=== PATIENT | female | born 1965 | race Caucasian/White ===

== ENCOUNTER → 2022-04-18 13:35 | Outpatient (BNVA) | payer OTHER, SELFPAY | PROVIDERS: PCP Family Medicine; Visit Provider Nurse Practitioner Family | DX: M47.27 Other spondylosis with radiculopathy, lumbosacral region (principal); M79.18 Myalgia, other site; R29.898 Other symptoms and signs involving the musculoskeletal system; F11.90 Opioid use, unspecified, uncomplicated; Z79.899 Other long term (current) drug therapy; Z86.73 Personal history of transient ischemic attack (TIA), and cerebral infarction without residual deficits | CPT/HCPCS: 99202 ==

== ENCOUNTER 2023-06-22 13:24 | Outpatient (AMB) | payer OTHER, SELFPAY ==
--- NOTE | 2023-06-22 13:30 | A.OFFVIS_ITS ---
Intake Vital Signs 06/22/23 13:36 Height 5 ft BMI Reason not done Patient refused/unable BP 132/84 Blood Pressure Location Rt brachial Position Sitting Pulse 78 Pulse Source Pulse Oximeter Temp 97.5 F Temp Source Skin Pulse Oximetry (%) 99 Oxygen Delivery Method Room Air Comment 234 at home, on wheelchair Intake Visit Reasons: Pain in unspecified joints Intake Note: New patient here today referred to us due to joint pains. 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 Bakeshop Cleaner Required: Yes Bakeshop Cleaner Name: Karsten [id number] Information Interpreted: clinical only Accompanied by: inspector fibrous wallboard Allergies amoxicillin Allergy (Severe, Verified 06/22/23 13:54) Diarrhea celecoxib [From Celebrex] Allergy (Severe, Verified 06/22/23 13:43) throat swelling, rash Wise And Derivatives Allergy (Severe, Verified 06/22/23 13:54) Shortness of Breath methylprednisolone Allergy (Severe, Verified 06/22/23 13:54) Anaphylaxis prednisone Allergy (Severe, Verified 06/22/23 13:54) Anaphylaxis insulin lispro [From Humalog U-100 Insulin] Allergy (Intermediate, Verified 06/22/23 13:54) Palpitations zolpidem Allergy (Intermediate, Verified 06/22/23 13:54) Unknown cortisone [CORTISONE] Allergy (Unknown, Verified 06/22/23 13:43) UNKNOWN Iodinated Contrast Media [IV Dye, Iodine Containing Contrast ] Allergy (Unknown, Verified 06/22/23 13:43) THROAT TIGHTENING, CHOKING FEELING PER PT latex Allergy (Unknown, Verified 06/22/23 13:54) Unknown meloxicam Allergy (Unknown, Unverified 06/22/23 13:54) Unknown sumatriptan [From IMITREX] Allergy (Unknown, Verified 06/22/23 13:43) UNKNOWN rizatriptan Allergy (Verified 06/22/23 13:54) Shortness of Breath baclofen Adverse Reaction (Unknown, Unverified 06/22/23 13:54) Unknown chlorthalidone Adverse Reaction (Unknown, Verified 06/22/23 13:54) Itching nitrofurantoin [From Macrobid] Adverse Reaction (Unknown, Unverified 06/22/23 13:54) Nausea cortisone Allergy (Severe, Uncoded 06/22/23 13:54) Anaphylaxis HPI HPI Comments History of Present Illness Details The patient presents with complaints of widespread pain. Her PROCESS IMPROVEMENT SPECIALIST accompanies her. We use the iPad translating device to facilitate the visit. The patient was intermittently tearful throughout the whole interview and exam. She describes she has had pain for years. 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 She says that was caused by a blood clot. There was left hemiparesis which has remained to some degree. In the last 6 months there has been some increased pain in the right knee and right shoulder. No injury was involved that she can recall. When she had her stroke however she did have surgery on the left foot because the stroke caused her to fall and fracture the foot. She was left with some painful deformity. further sugery was done but the foot remains painful and because of the weakness and pain she does not walk. There is also some pain diffusely in the forearms, hands, lower back, neck, and the left knee. She thinks the right knee is swollen. She is on high doses of narcotics for pain without any significant benefit presently. I am not sure if there has been any attempt at tapering her medications. She has type 2 diabetes that she admits is not well controlled. She says her feet are numb. For her ssymptoms she remains on tizanidine, gabapentin, trazodone, mirtazapine, and duloxetine. 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 Hyperglycemia COVID-19 Abnormal findings on diagnostic imaging of breast Left flank pain LUQ pain Chronic abdominal pain Urinary incontinence Altered mental status Sleep apnea Acquired ankle deformity H/O nonunion of fracture Sciatica Cyst of pancreas Acute pancreatitis GERD (gastroesophageal reflux disease) Asthma Late effects of cerebrovascular disease Essential (primary) hypertension Ophthalmic migraine Migraine Chronic pain Insomnia Opioid dependence Panic disorder without agoraphobia Anxiety Morbid obesity Hyperlipidemia, unspecified Hypertriglyceridemia Pure hypercholesterolemia Vitamin D deficiency Type 2 diabetes mellitus Hypothyroidism, unspecified Tinea corporis Surgical History (Updated 06/22/23 @ 14:31 by PATRICIA Beasley) Hx of total hysterectomy Hx of cholecystectomy Hx of section Hx of appendectomy Hx of tonsillectomy Family History (Updated 06/22/23 @ 14:29 by PATRICIA Beasley) Mother Heart disease HTN (hypertension) Malignant tumor of breast Endometrial carcinoma Malignant neoplasm of lung Father CVA (cerebral vascular accident) HTN (hypertension) Heart disease Leukemia Myocardial infarction Sister Malignant neoplasm of lung CVA (cerebral vascular accident) Brother No problems noted. Other Arthritis Lupus Social History (Updated 06/22/23 @ 14:30 by PATRICIA Beasley) Household Members: Spouse Alcohol intake: never Patient Tobacco Use Status: Never used Tobacco Current occupational status: disabled Female Reproductive History Menstrual Total pregnancies: 2 Review of Systems Const Details: Low energy apparently is not very active some weight gain in the past 2 years. Negative for appetite change, fever, chills, malaise Eyes Details: Occasional headache. Some dry eyes at times. Negative for vision change, and d izziness ENT Details: Called the swallowing attributed to her stroke. Negative for hearing change, tinnitus, oral ulcer, nose bleeds and oral dryness. Card Details: Negative chest pain, edema and syncope Resp Details: Occasional shortness of breath. No cough and wheezing GI Details: Occasional constipation and diarrhea. Previous history of cholecystectomy, appendectomy, and unilateral oophorectomy. Negative indigestion/heartburn, nausea, abdominal pain, bowel changes and bloody stool. Details: Negative for dysuria, hematuria, nocturia, decreased force/flow and genital discharge Skin/Breast Details: Bluish discoloration in the distal fingers and toes. Negative for itching, rash, hives, Raynaud's symptoms, sun sensitivity, and skin cancer Neuro Details: Numbness in the feet, weakness on the left leg and arm. Negative for epilepsy, palsy, stroke, changes in speechs Psych Details: Continues with periods of anxiety and depression. Endo Details: Negative for polyuria and polydypsia Luciano/Lymph Details: Negative for excessive bruising or bleeding. Physical Exam Vital Signs: Last Vital Signs Temp 97.5 F 06/22/23 13:36 Pulse 78 06/22/23 13:36 BP 132/84 06/22/23 13:36 Pulse Ox 99 06/22/23 13:36 Oxygen Delivery Method Room Air 06/22/23 13:36 APPEARANCE: Patient in no acute distress EYES no redness, pupils equal and reactive to light, eyelids normal. No temporal artery tenderness, redness or swelling. EARS: External ear normal, canal clear and tympanic membrane normal. NOSE/SINUS: Airflow through both nares, no nasal discharge, no bleeding THROAT: Oral mucosa moist, no ulcerations NECK: No thyromegaly or masses, no adenopathy, trachea midline. HEART: Regulrar rhythm, S1-S2 heard, no murmurs, rubs or gallops. LUNG: Clear to percussion and auscultation ABD: Normal bowel sounds, no organomegaly, masses or tenderness. EXTREMITIES: No edema; there is bilateral pretibial tenderness., no calf tenderness, normal peripheral pulses. NEURO: This in the left hand and left leg. Oriented and alert x3. No focal weakness. Reflexes symmetric. Not able to stand. SKIN: Dusky discoloration of the toes and feet. No skin ulcers. JOINT EXAM:.?? Cervical Spine:.? Mild pain with lateral flexion at 10 degrees or rotation at 30 degrees. Mild paraspinal muscle tenderness. Thoracic Spine:.? No scoliosis.? Mild paraspinal muscle tenderness on palpation. Lumbar Spine:.? Alignment normal.? Not able to assess range of motion since she can not get out of the wheelchair. There is some mild paraspinal muscle tenderness. Chest Wall:.? Parasternal tenderness without bruising or redness. No swelling, increased warmth or erythema. Hands:.? Diffuse puffiness over the dorsum of the hand in the fingers. There is complaint of pain with range of motion fingers but no obvious see swelling of the joints. Some decreased sensation over the fingertips in the left hand. Wrists:.? Mild pain with flexion extension at 75 degrees. Mild tenderness without redness or swelling. Elbows:. Mild pain with extremes of flexion or extension. There is tenderness over the joint space, lateral epicondylar areas and medial epicondylar areas. No swelling or redness. Shoulders: Right: Moderate pain with abduction at 75 degrees or any attempted rotation. Mild anterior tenderness questionable abductor weakness but no swelling. No adenopathy. Left:?? Full range of motion with mild discomfort at the extremes of normal range of motion. There is mild anterior and posterior tenderness without abductor, weakness, swelling, increased warmth or erythema. Hips:.? Difficult to assess in the wheelchair but no apparent pain with range of motion. Hip bursa:.? Unable to assess. Knees:.?? Left: Mild pain with extremes of flexion extension with some mild medial tenderness but no redness or effusion. Right: Moderate pain with more than 45 degrees flexion or extension. There is a small effusion evident without redness or warmth. Mild popliteal tenderness without swelling. Ankles:.? Left: Evidence of previous surgery. There is no she range of motion evident. There is mild medial and lateral tenderness without redness or warmth. Right: Mild pain with extremes of normal range of motion. Mild tenderness without swelling. No increased warmth or erythema. Feet:.? Some puffiness in the feet, likely some edema. Diffuse tenderness in the instep and MTP regions. No active synovitis in the toes. No breaks in the skin where she has a bandage from an ulcer. The aide says that is been there now for about 2 weeks. No other breaks in the skin.. Tender points:.? [id number] tenderness to digital palpation at the occiput, trapezius, second rib, lateral epicondyle, knees, greater trochanter and gluteal area bilaterally. ? Results Reviewed Results Reviewed: 04/20/2023 MRI of the right shoulder possibly some supraspinatus tendinitis but no definitive tear. Mild acromioclavicular osteoarthritis and small glenohumeral joint effusion. April 14 lab work showed negative lupus anticoagulant, normal serum complements, negative SUMANTH, CRP elevated on June 18 at 26.2 mg/dL. Assessment & Plan Assessment & Plan (1) Right upper limb pain: Code(s): M79.601 - Pain in right arm (2) Knee pain, right anterior: Code(s): M25.561 - Pain in right knee Plan Patient has widespread pain with many tender points consistent with fibromyalgia. However she does have a left hemiparesis from her old stroke. There is more severe pain with range of motion the right shoulder suggesting rotator cuff pathology in spite of the negative MRI for rotator cuff tear she may have tendinitis or impingement. Another possibility would be a radicular component from cervical disc disease. I think nerve conduction studies may be helpful to try to delineate if there is a nerve entrapment problem in the neck giving her the right arm pain. I do not think I have additional therapeutic suggestions presently. She claims to be allergic to cortisone so does not want a cortisone injection. It is not clear to me what her allergy actually consisted of. She gives a story that she was exposed to citrus products and that caused her to have trouble breathing with throat closure but I do not know what the role of corticosteroids were in causing her citrus allergy. She also has some swelling in the right knee. So she possibly has inflammatory arthritis and or osteoarthritis in the knee. However the effusion is not accompanied by warmth or redness. We will get an x-ray of the right knee. The aide tells me that the patient is scheduled for an ultrasound of the right arm but I do not exactly know what they would be looking for there. Recent CRP and sed rate were elevated. This could be related to the fact she was on antibiotics for UTI and now she has a left foot ulcer for which she was on antibiotics. It is likely the foot ulcer is related to diabetic neuropathy. This will need follow-up in primary care. Follow-up in 2 months is recommended. Review of the patient's old records, today's history, today's exam, and discussion of the treatment plan took 64 minutes. Orders: Orders NE electromyogram (EMG) Today M79.601 - Pain in right arm XR knee RT 3V Today M25.561 - Pain in right knee Coding Level of Care Code New Pt Level 5 (51648) Diagnoses Right upper limb pain M79.601 Knee pain, right anterior M25.561
[2023-06-22 13:36] VITALS: BP 132/84; PULSE 78; TEMP 36.4; O2SAT 99
== END 2023-06-22 15:14 | disposition home or self-care (01) ==
PROVIDERS: PCP Family Medicine; Visit Provider Internal Medicine Rheumatology
DX: M79.601 Pain in right arm (principal); M25.561 Pain in right knee; M79.7 Fibromyalgia
CPT/HCPCS: 99205

== ENCOUNTER → 2023-06-22 13:24 | Outpatient (BNVA) | payer OTHER, SELFPAY | PROVIDERS: Visit Provider Internal Medicine Rheumatology ==